=== PATIENT | male | born 1955 | race Two or more races ===

== ENCOUNTER 2024-06-27 10:32 | Emergency (ER) | payer OTHER, MEDICARE ==
[2024-06-27 11:25] VITALS: BP 108/70; PULSE 85; RESP 16; TEMP 98.6; BMI 25.8
[2024-06-27] MEDS ORDERED: KETOROLAC TROMETHAMINE 30 MG/1 ML VIAL ONE (11:37)
[2024-06-27] MEDS ORDERED: LIDOCAINE 4% PATCH TP ONE (11:37)
[2024-06-27] MEDS: KETOROLAC TROMETHAMINE 30 MG/1 ML VIAL IM ONE (11:42)
[2024-06-27] MEDS: LIDOCAINE 4% PATCH TP ONE (11:47)
[2024-06-27] MEDS: LIDOCAINE 5% TOPICAL PATCH TP ONE (11:47)
[2024-06-27] MEDS ORDERED: LIDOCAINE PATCH REMOVAL MC SCH ×2 (22:00)
== END 2024-06-27 13:08 | disposition home or self-care (01) ==
LOC: JERFT 10:32
PROC: 3E0233Z Introduction of Anti-inflammatory into Muscle, Percutaneous Approach (ICD-10-PCS; principal; 2024-06-27)
DX: M54.50 Low back pain, unspecified (principal); R53.83 Other fatigue; R61 Generalized hyperhidrosis; R68.83 Chills (without fever); Z20.822 Contact with and (suspected) exposure to COVID-19
CPT/HCPCS: 0241U-QW; 93005; 93010; 99284-25